=== PATIENT | male | born 1980 | race American Indian/Alaskan Native ===

== ENCOUNTER 2024-02-28 16:09 | Emergency (ER) | payer SELFPAY ==
[~2024-02-28] VITALS: Ht 180.3 cm; Wt 100.0 kg
[2024-02-28 16:20] VITALS: TEMP 98.6
[2024-02-28 18:28] VITALS: BP 128/94; PULSE 83
== END 2024-02-28 18:28 | disposition home or self-care (01) ==
LOC: COL.ER 16:09
DX: S16.1XXA Strain of muscle, fascia and tendon at neck level, initial encounter (principal); S46.912A Strain of unspecified muscle, fascia and tendon at shoulder and upper arm level, left arm, initial encounter; V43.62XA Car passenger injured in collision with other type car in traffic accident, initial encounter; Y92.410 Unspecified street and highway as the place of occurrence of the external cause